=== PATIENT | male | born 2000 | race Caucasian/White ===

== ENCOUNTER 2021-03-07 21:47 | Emergency (ER) | payer BC, SELFPAY ==
[2021-03-07 21:51] VITALS: BP 149/75; PULSE 79; RESP 16; TEMP 37.3; O2SAT 98
--- NOTE | 2021-03-07 21:54 | DI.RAD.S_ITS ---
PROCEDURE: XR CHEST 1V INDICATIONS: chest pain TECHNIQUE: One view of the chest was acquired. COMPARISON: None. FINDINGS: Surgical changes and devices: None. Lungs and pleura: Lungs are clear. No pleural effusions or pneumothorax. Mediastinum: Mediastinal contours appear normal. Heart size is normal. Bones and chest wall: No suspicious bony lesions. Overlying soft tissues appear unremarkable. IMPRESSION: No acute cardiopulmonary abnormality. Dictated by: Clay Gillette M.D. on 03/07/2021 at 22:07 Approved by: Clay Gillette M.D. on 03/07/2021 at 22:07
[2021-03-07 22:27] LABS: Add Manual Diff / Slide Review NO; Basophils Absolute Auto 100 /uL (0-100); Basophils Percent Auto 0.6 % (0-2); Eosinophils Absolute Auto 200 /uL (0-450); Eosinophils Percent Auto 2.1 % (2-4); Hematocrit 43.4 % (41-53); Hemoglobin 14.8 g/dL (13.5-17.5); Lymphocytes Absolute Auto 2300 /uL (1100-4500); Lymphocytes Percent Auto 24.5 % (25-40); Mean Corpuscular HGB Conc 34.1 % (30-36); Mean Corpuscular Hemoglobin 28.7 PG (26-34); Mean Corpuscular Volume 84.3 fL (80-100); Monocytes Absolute Auto 800 /uL (0-900); Monocytes Percent Auto 8.6 % (3-14); Neutrophils Absolute Auto 5900 /uL (1500-7000); Neutrophils Percent Auto 64.2 % (50-75); Platelet Count 283 X10^3/uL (150-400); Red Blood Cell Count 5.14 X10^6/uL (4.5-5.9); Red Cell Distribution Width 12.8 % (11.6-14.8); White Blood Cell Count 9.2 X10^3/uL (4.5-11.0)
[2021-03-07 22:35] LABS: Alanine Aminotransferase 20 IU/L (<50); Albumin 4.8 g/dL (3.5-5.0); Albumin Globulin Ratio 1.7 (1.0-2.8); Alkaline Phosphatase 65 U/L (38-126); Aspartate Aminotransferase 30 IU/L (17-59); BUN Creatinine Ratio 16.3 (6-22); Bilirubin Total 0.7 mg/dL (0.2-1.3); Blood Urea Nitrogen 14 mg/dL (9-20); Calcium 9.5 mg/dL (8.4-10.2); Carbon Dioxide 29 mmol/L (22-32); Chloride 104 mmol/L (98-107); Creatine Kinase 200 U/L (55-170); Estimated Glomerular Filt Rate > 60.0 mL/min (>60); Globulin 2.9 g/dL (1.7-4.1); Glucose 93 mg/dL (70-100); HEMOLYSIS 17 (0-50); Lipase 26 U/L (23-300); Magnesium 2.1 mg/dL (1.6-2.3); Potassium 3.6 mmol/L (3.4-5.1); Sodium 140 mmol/L (137-145); Total Protein 7.7 g/dL (6.3-8.2)
[2021-03-07 22:46] LABS: Troponin I < 0.012 ng/mL (0.01-0.034)
[2021-03-07 22:46] LABS: COVID19 -Nasal RAPID Negative (Negative)
[2021-03-07 22:50] LABS: CKMB % Relative Index 0.4 % (1.5-5.0); Creatine Kinase MB 0.85 ng/mL (<2.37)
[2021-03-07 23:57] VITALS: BP 120/69; PULSE 64; RESP 18; O2SAT 99
--- NOTE | 2021-03-08 00:06 | ED.CHESTPAIN ---
HPI - Chest Pain General Chief Complaint: Chest Pain Stated Complaint: chest pain, short of breath Time Seen by Provider: 03/08/21 00:05 Source: patient Mode of arrival: Ambulatory History of Present Illness HPI narrative: Patient is a healthy 21-year-old male presenting with shortness of breath and chest discomfort ongoing for about 1 month. He says he occasionally gets some chest pain in the center of his chest it takes his breath away. He gets short of breath when he is exercising at times. He is able to go up about 10 flights of stairs without stopping. He occasionally feels it when he lays down at night as well. He denies any fever or chills no palpitations. He denies any hemoptysis no prior history of DVT however multiple family members have factor 5 Leiden. He has not had any recent travel. He denies any cough. He describes pain sometimes a dull ache and sometimes sharp and stabbing. It is nonradiating. Related Data Allergies Allergy/AdvReac Type Severity Reaction Status Date / Time No Known Drug Allergies Allergy Verified 03/07/21 21:54 Review of Systems Review of Systems Narrative: GENERAL: Denies chills, fatigue, malaise, fever, sweats, travel HEENT: Denies sinus pain, ear pain, sore throat, difficulty swallowing, neck pain RESPIRATORY: Denies dyspnea, cough, wheezing, hemoptysis, sputum. CARDIOVASCULAR: see HPI GASTROINTESTINAL: Denies nausea, vomiting, abdominal pain, diarrhea, constipation, melena. : Denies dysuria, frequency, incontinence, hematuria, urinary retention, flank pain. MUSCULOSKELETAL: Denies weakness, joint pain, or bony pain SKIN: No rash, no erythema, no pruritus NEUROLOGIC: Denies weakness, dizziness, headache, numbness, change in speech, confusion PSYCHIATRIC: No concerning psychosocial issues. 12 point review of systems is negative except for those stated above and HPI Exam Initial Vital Signs Initial Vital Signs: Vital Signs Temperature 99.1 F 03/07/21 21:51 Pulse Rate 79 03/07/21 21:51 Respiratory Rate 16 03/07/21 21:51 Blood Pressure 149/75 H 03/07/21 21:51 Pulse Oximetry 98 03/07/21 21:51 GENERAL: Alert well-appearing 21-year-old male in no acute distress. HEENT: Head atraumatic,EOMI, pupils reactive, face symmetric, moist mucous membranes CARDIOVASCULAR: Regular rate and rhythm without murmurs, rubs or gallops. RESPIRATORY: Breath sounds equal bilaterally, no wheezes rales or rhonchi. ABDOMEN: Soft, nontender. Normoactive bowel sounds all 4 quadrants. No guarding or rebound. EXTREMITIES: Normal range of motion, no clubbing or edema. Neurovascularly intact NEUROLOGICAL: Alert and oriented x4.Normal gait and speech. SKIN: Warm, dry, no laceration, no petechiae, no rashes or lesions. Scores PERC Score Age greater than or equal to 50 years: No Heart rate greater than or equal to 100 bpm: No Room Air O2 Sat less than 95%: No Unilateral leg swelling: No Recent trauma or surgery: No Hemoptysis: No Prior PE or DVT: No Hormone Use: No Total PERC Score: 0 Course Orders Ordered: ED Orders 03/07/21 21:54 XR chest 1V Stat EKG-12 Lead Stat 03/07/21 22:05 Complete Blood Count AUTO DIFF Stat Comprehensive Metabolic Panel Stat Lipase Stat Magnesium Stat Troponin & CK Cardiac Panel Stat 03/07/21 22:20 COVID19 -Nasal swab/Pre-Proc Stat 03/08/21 00:14 D Dimer Stat Vital Signs Vital signs: Vital Signs - 8 hr 03/07/21 21:51 03/07/21 23:57 03/08/21 01:08 Temperature 99.1 F Pulse Rate 79 64 68 Respiratory Rate 16 18 20 Blood Pressure 149/75 H 120/69 131/85 Pulse Oximetry 98 99 99 MDM - Chest Pain Lab Data Result diagrams: 03/07/21 22:05 03/07/21 22:05 Labs: Lab Results 03/07/21 03/07/21 03/07/21 Range/Units 22:05 22:05 22:05 WBC 9.2 (4.5-11.0) X10^3/uL RBC 5.14 (4.5-5.9) X10^6/uL Hgb 14.8 (13.5-17.5) g/dL Hct 43.4 (41-53) % MCV 84.3 (80-100) fL MCH 28.7 (26-34) PG MCHC 34.1 (30-36) % RDW 12.8 (11.6-14.8) % Plt Count 283 (150-400) X10^3/uL Neut % (Auto) 64.2 (50-75) % Lymph % (Auto) 24.5 L (25-40) % [place] % (Auto) 8.6 (3-14) % Eos % (Auto) 2.1 (2-4) % Baso % (Auto) 0.6 (0-2) % Neut # (Auto) 5900 (8816-8282) /uL Lymph # (Auto) 2300 (6232-5334) /uL [place] # (Auto) 800 (0-900) /uL Eos # (Auto) 200 (0-450) /uL Baso # (Auto) 100 (0-100) /uL D-Dimer < 200 (<230) ng/mL Sodium 140 (137-145) mmol/L Potassium 3.6 (3.4-5.1) mmol/L Chloride 104 (98-107) mmol/L Carbon Dioxide 29 (22-32) mmol/L BUN 14 (9-20) mg/dL Creatinine 0.86 (0.66-1.25) mg/dL Estimated GFR > 60.0 (>60) mL/min BUN/Creatinine Ratio 16.3 (6-22) Glucose 93 (70-100) mg/dL Calcium 9.5 (8.4-10.2) mg/dL Magnesium 2.1 (1.6-2.3) mg/dL Total Bilirubin 0.7 (0.2-1.3) mg/dL AST 30 (17-59) IU/L ALT 20 (<50) IU/L Alkaline Phosphatase 65 (38-126) U/L Total Creatine Kinase 200 H (55-170) U/L CK-MB (CK-2) 0.85 (<2.37) ng/mL CK-MB (CK-2) Rel Index 0.4 L (1.5-5.0) % Troponin I < 0.012 (0.01-0.034) ng/mL Total Protein 7.7 (6.3-8.2) g/dL Albumin 4.8 (3.5-5.0) g/dL Globulin 2.9 (1.7-4.1) g/dL Albumin/Globulin Ratio 1.7 (1.0-2.8) Lipase 26 (23-300) U/L SARS-CoV-2 (PCR) (Negative) 03/07/21 Range/Units 22:20 WBC (4.5-11.0) X10^3/uL RBC (4.5-5.9) X10^6/uL Hgb (13.5-17.5) g/dL Hct (41-53) % MCV (80-100) fL MCH (26-34) PG MCHC (30-36) % RDW (11.6-14.8) % Plt Count (150-400) X10^3/uL Neut % (Auto) (50-75) % Lymph % (Auto) (25-40) % [place] % (Auto) (3-14) % Eos % (Auto) (2-4) % Baso % (Auto) (0-2) % Neut # (Auto) (6440-8994) /uL Lymph # (Auto) (8220-8897) /uL [place] # (Auto) (0-900) /uL Eos # (Auto) (0-450) /uL Baso # (Auto) (0-100) /uL D-Dimer (<230) ng/mL Sodium (137-145) mmol/L Potassium (3.4-5.1) mmol/L Chloride (98-107) mmol/L Carbon Dioxide (22-32) mmol/L BUN (9-20) mg/dL Creatinine (0.66-1.25) mg/dL Estimated GFR (>60) mL/min BUN/Creatinine Ratio (6-22) Glucose (70-100) mg/dL Calcium (8.4-10.2) mg/dL Magnesium (1.6-2.3) mg/dL Total Bilirubin (0.2-1.3) mg/dL AST (17-59) IU/L ALT (<50) IU/L Alkaline Phosphatase (38-126) U/L Total Creatine Kinase (55-170) U/L CK-MB (CK-2) (<2.37) ng/mL CK-MB (CK-2) Rel Index (1.5-5.0) % Troponin I (0.01-0.034) ng/mL Total Protein (6.3-8.2) g/dL Albumin (3.5-5.0) g/dL Globulin (1.7-4.1) g/dL Albumin/Globulin Ratio (1.0-2.8) Lipase (23-300) U/L SARS-CoV-2 (PCR) Negative (Negative) Imaging Data Chest x-ray: Radiologist's Impression: PROCEDURE:? XR CHEST 1V ? INDICATIONS:? chest pain ? TECHNIQUE:? One view of the chest was acquired.? ? COMPARISON:? None. ? FINDINGS:? ? Surgical changes and devices:? None.? ? Lungs and pleura:? Lungs are clear.? No pleural effusions or pneumothorax.? ? Mediastinum:? Mediastinal contours appear normal.? Heart size is normal.? ? Bones and chest wall:? No suspicious bony lesions.? Overlying soft tissues appear unremarkable.? ? IMPRESSION:? No acute cardiopulmonary abnormality. ? ? ? Dictated by: Clay Gillette M.D. on 03/07/2021 at 22:07? ECG Data Interpretation: Normal sinus rhythm rate 75 MT interval 148 QRS [address] changes no T-wave inversions no Q-waves MDM Narrative Medical decision making narrative: The patient has been having symptoms ongoing for about 1 month. No significant shortness of breath or acute respiratory distress at this time. He does have numerous his family members positive for factor 5. Fortunately his D-dimer is negative he is not hypoxic or tachycardic. This time this is unlikely to be a pulmonary embolism he has a negative PERC score as well. EKG troponin are also all negative. At this time recommend outpatient follow-up primary care provider. Discharge Plan Departure Patient Disposition: Home Clinical Impression: Atypical chest pain Instructions: DI for Atypical Chest Pain Activity Restrictions/Additional Instructions: *You have been diagnosed with atypical chest pain *What to do: At this time I recommend it tested for factor 5 Leiden. Blood work x-ray and EKG are overall reassuring. Please follow-up with her primary care provider in regards to increasing shortness of breath he may need more testing. *Continue to take medications as directed *Follow up with your primary care provider in 2-3 days or call [phone] *Return to ER if you should have increasing chest pain, shortness of breath, fever or any new, worsening or concerning symptoms
[2021-03-08 00:30] LABS: D Dimer < 200 ng/mL (<230)
[2021-03-08 01:08] VITALS: BP 131/85; PULSE 68; RESP 20; O2SAT 99
== END 2021-03-08 01:14 | disposition home or self-care (01) ==
PROVIDERS: Emergency Provider Emergency Medicine
DX: R07.89 Other chest pain (principal); Z20.822 Contact with and (suspected) exposure to COVID-19
CPT/HCPCS: 36415; 71045; 80053; 82550; 82553; 83690; 83735; 84484; 85025; 85379; 87635; 93005; 99283; 99284; C9803

== ENCOUNTER 2022-03-26 10:22 | Emergency (ER) | payer BC, SELFPAY ==
[2022-03-26 11:00] VITALS: BP 144/68; PULSE 72; RESP 18; TEMP 36.7; O2SAT 99; BMI 38.5
[2022-03-26 11:51] LABS: Add Manual Diff / Slide Review NO; Basophils Absolute Auto 100 /uL (0-100); Basophils Percent Auto 0.8 % (0-2); Eosinophils Absolute Auto 0 /uL (0-450); Eosinophils Percent Auto 0.6 % (2-4); Hematocrit 43.6 % (41-53); Hemoglobin 15.1 g/dL (13.5-17.5); Lymphocytes Absolute Auto 1200 /uL (1100-4500); Lymphocytes Percent Auto 19.3 % (25-40); Mean Corpuscular HGB Conc 34.6 % (30-36); Mean Corpuscular Hemoglobin 28.8 PG (26-34); Mean Corpuscular Volume 83.2 fL (80-100); Monocytes Absolute Auto 400 /uL (0-900); Monocytes Percent Auto 6.4 % (3-14); Neutrophils Absolute Auto 4600 /uL (1500-7000); Neutrophils Percent Auto 72.9 % (50-75); Platelet Count 325 X10^3/uL (150-400); Red Blood Cell Count 5.24 X10^6/uL (4.5-5.9); Red Cell Distribution Width 13.2 % (11.6-14.8); White Blood Cell Count 6.3 X10^3/uL (4.5-11.0)
[2022-03-26 11:57] LABS: Alanine Aminotransferase 26 IU/L (<50); Albumin 5.1 g/dL (3.5-5.0); Albumin Globulin Ratio 1.4 (1.0-2.8); Alkaline Phosphatase 76 U/L (38-126); Aspartate Aminotransferase 30 IU/L (17-59); BUN Creatinine Ratio 16.2 (6-22); Bilirubin Total 0.7 mg/dL (0.2-1.3); Blood Urea Nitrogen 12 mg/dL (9-20); Calcium 9.5 mg/dL (8.4-10.2); Carbon Dioxide 30 mmol/L (22-32); Chloride 100 mmol/L (98-107); Estimated Glomerular Filt Rate > 60 mL/min (>60); Globulin 3.7 g/dL (1.7-4.1); Glucose 106 mg/dL (70-100); HEMOLYSIS 32 (0-50); Lipase 24 U/L (23-300); Potassium 3.7 mmol/L (3.4-5.1); Sodium 141 mmol/L (137-145); Total Protein 8.8 g/dL (6.3-8.2)
--- NOTE | 2022-03-26 12:19 | DI.CT.S_ITS ---
PROCEDURE: CT ABDOMEN PELVIS W CON INDICATIONS: abd pain x 3 weeks, started RLQ, now generalized. TECHNIQUE: After the administration of intravenous contrast, axial sections acquired from the lung bases to the pubic symphysis. Coronal and sagittal reformats were performed. For radiation dose reduction, the following was used: automated exposure control, adjustment of mA and/or kV according to patient size. COMPARISON: None. FINDINGS: Image quality: Excellent. Lung bases: Unremarkable. Heart: No significant findings. ABDOMEN: Liver: Unremarkable. Gallbladder: Unremarkable. Biliary ducts: Unremarkable. Pancreas: Unremarkable. Spleen: Unremarkable. Adrenal Glands: Unremarkable. Kidneys and Ureters: Unremarkable. Stomach and Bowel: Stomach, small bowel loops, and colon are unremarkable. Appendix is visualized in right lower quadrant and is normal in size and appearance. Peritoneum: No abnormal intraperitoneal fluid. No free air. Ventral Wall: No hernias. Abdominal Nodes: No retroperitoneal or mesenteric adenopathy by size criteria. Vessels: Aorta and inferior vena cava are normal in size. PELVIS: Pelvic Organs: Unremarkable. Bladder: Unremarkable. Pelvic Nodes: No enlarged lymph nodes. Miscellaneous: No hernias are seen. Bones: No suspicious bony lesions. No acute vertebral body compression fracture. IMPRESSION: 1. Normal appendix. No bowel obstruction or abnormal bowel wall thickening. No free fluid or free air. 2. No renal stones or hydronephrosis. Normal appearing urinary bladder. Dictated by: Christopher Kathleen M.D. on 03/26/2022 at 13:06 Approved by: Christopher Kathleen M.D. on 03/26/2022 at 13:13
--- NOTE | 2022-03-26 13:56 | ED_ITS ---
HPI - Abdominal Pain <Juan F Faye PA-C - Last Filed: 03/26/22 14:08> General Chief Complaint: Abdominal Pain Stated Complaint: abd pain t-14 getting worse Time Seen by Provider: 03/26/22 12:08 Source: patient Mode of arrival: Ambulatory History of Present Illness HPI narrative: 22-year-old male with no reported past medical history presents to the ED with 3 weeks of all over abdominal pain. Patient states that his pain 1st started in the right lower quadrant, however has migrated into the epigastric region, and sometimes all over. Patient states that the pain is an 8/10 when at its worst, which was this morning. In the ED patient endorses a 3/10 pain, sometimes barely discernible. Patient denies fever, chills, chest pain, shortness of breath, vomiting, dysuria, diarrhea, constipation, flank pain, lightheadedness, dizziness, syncope. Denies changes to bowel movements recently. Patient does not appreciate any alleviating or aggravating factors. Patient states that he sometimes perceives more pain when working and doing activities like digging. States that the pain feels better with walking. No prior abdominal surgeries. Related Data Home Medications Medication Instructions Recorded Confirmed No Known Home Medications 03/26/22 03/26/22 Allergies Allergy/AdvReac Type Severity Reaction Status Date / Time No Known Drug Allergies Allergy Verified 03/26/22 11:04 Review of Systems <Juan F Faye PA-C - Last Filed: 03/26/22 14:08> Review of Systems ROS Unobtainable: All systems reviewed & are unremarkable except as noted in HPI and below Constitutional Constitutional: Denies chills, Denies fatigue, Denies fever(s), Denies frequent falls, Denies lethargy and Denies weakness Eyes Eyes: Denies change in vision, Denies eye discharge, Denies irritation and Denies loss of vision ENT Ears, Nose, Mouth, and Throat: Denies change in voice, Denies dizziness, Denies neck pain, Denies sore throat and Denies throat swelling Cardiovascular Cardiovascular: Denies chest pain, Denies irregular heart rhythm, Denies lightheadedness, Denies palpitations, Denies dyspnea, Denies dyspnea on exertion and Denies orthopnea Respiratory Respiratory: Denies cough, Denies dyspnea, Denies dyspnea on exertion and Denies wheezing Gastrointestinal Gastrointestinal: Reports abdominal pain, Denies change in bowel habits, Denies diarrhea, Reports nausea and Denies vomiting Genitourinary Genitourinary: Denies hematuria, Denies flank pain, Denies urinary incontinence and Denies urinary urgency Musculoskeletal Musculoskeletal: Denies back pain, Denies muscle weakness, Denies neck pain, Denies numbness and Denies tingling Integumentary/Breasts Skin/Breast: Denies pruritus, Denies erythema, Denies rash and Denies wounds Neurologic Neurologic: Denies behavioral changes, Denies confusion, Denies dizziness, De nies frequent falls, Denies loss of vision, Denies numbness, Denies tingling and Denies weakness Psychiatric Psychiatric: Denies anxiety, Denies behavioral changes, Denies confusion, Denies depression, Denies homicidal ideation and Denies suicidal ideation Endocrine Endocrine: Denies fatigue, Denies flushing and Denies palpitations Hematologic/Lymphatic Hematologic/Lymphatic: Denies easy bruising Allergic/Immunologic Allergic/Immunologic: Denies urticaria, Denies throat swelling and Denies wheezing Patient History <Juan F Faye PA-C - Last Filed: 03/26/22 14:08> Social History Smoking Status: Never smoker Smoking Status: Never smoker alcohol intake frequency: 0-2 drinks per day Substance Use Type: does not use Exam <Juan F Faye PA-C - Last Filed: 03/26/22 14:08> Narrative Exam Narrative: Const General:?cooperative, healthy appearing and comfortable [facility] Head:?normal to inspection Ears:?hearing grossly normal bilaterally Nose:?external nose normal Face and sinus:?normal facial exam and sinuses nontender Mouth:?oral mucosae normal Throat:?posterior oropharynx normal Eyes General:?appearance normal, both eyes and all related structures Neck Neck:?normal visual inspection and no lymphadenopathy noted Resp Effort & Inspection:?normal respiratory effort Auscultation:?clear to auscultation bilaterally Cardio Rate:?regular rate Rhythm:?regular rhythm GI Abdomen is soft, nondistended. Tender to palpation in the epigastric region. No CVA tenderness. Neuro General:?patient alert, patient awake and patient oriented x3 Initial Vital Signs Initial Vital Signs: Vital Signs Temperature 98.1 F 03/26/22 11:00 Pulse Rate 72 03/26/22 11:00 Respiratory Rate 18 03/26/22 11:00 Blood Pressure 144/68 H 03/26/22 11:00 Pulse Oximetry 99 03/26/22 11:00 Oxygen Delivery Method 03/26/22 11:00 <DO Eric Caballero Last Filed: 03/29/22 07:56> Initial Vital Signs Initial Vital Signs: Vital Signs Temperature 98.1 F 03/26/22 11:00 Pulse Rate 72 03/26/22 11:00 Respiratory Rate 18 03/26/22 11:00 Blood Pressure 144/68 H 03/26/22 11:00 Pulse Oximetry 99 03/26/22 11:00 Oxygen Delivery Method 03/26/22 11:00 Course <VINNY Capone Last Filed: 03/26/22 14:08> Orders Ordered: Discontinued Medications Ondansetron HCl (Ondansetron 4 Mg/2 Ml Inj) 4 mg IV NOW PRN PRN Reason: Nausea And Vomiting Vital Signs Vital signs: Vital Signs - 8 hr 03/26/22 11:00 Temperature 98.1 F Pulse Rate 72 Respiratory Rate 18 Blood Pressure 144/68 H Pulse Oximetry 99 Oxygen Delivery Method Room Air <DO Eric Caballero Last Filed: 03/29/22 07:56> Orders Ordered: Discontinued Medications Ondansetron HCl (Ondansetron 4 Mg/2 Ml Inj) 4 mg IV NOW PRN PRN Reason: Nausea And Vomiting Vital Signs Vital signs: Vital Signs - 8 hr 03/26/22 11:00 Temperature 98.1 F Pulse Rate 72 Respiratory Rate 18 Blood Pressure 144/68 H Pulse Oximetry 99 Oxygen Delivery Method Room Air MDM - Abdominal Pain <VINNY Capone Last Filed: 03/26/22 14:08> Lab Data Result diagrams: 03/26/22 11:30 03/26/22 11:30 Labs: Lab Results 03/26/22 03/26/22 Range/Units 11:30 11:30 WBC 6.3 (4.5-11.0) X10^3/uL RBC 5.24 (4.5-5.9) X10^6/uL Hgb 15.1 (13.5-17.5) g/dL Hct 43.6 (41-53) % MCV 83.2 (80-100) fL MCH 28.8 (26-34) PG MCHC 34.6 (30-36) % RDW 13.2 (11.6-14.8) % Plt Count 325 (150-400) X10^3/uL Neut % (Auto) 72.9 (50-75) % Lymph % (Auto) 19.3 L (25-40) % [place] % (Auto) 6.4 (3-14) % Eos % (Auto) 0.6 L (2-4) % Baso % (Auto) 0.8 (0-2) % Neut # (Auto) 4600 (3357-3794) /uL Lymph # (Auto) 1200 (3300-7021) /uL [place] # (Auto) 400 (0-900) /uL Eos # (Auto) 0 (0-450) /uL Baso # (Auto) 100 (0-100) /uL Sodium 141 (137-145) mmol/L Potassium 3.7 (3.4-5.1) mmol/L Chloride 100 (98-107) mmol/L Carbon Dioxide 30 (22-32) mmol/L BUN 12 (9-20) mg/dL Creatinine 0.74 (0.66-1.25) mg/dL Estimated GFR > 60 (>60) mL/min BUN/Creatinine Ratio 16.2 (6-22) Glucose 106 H (70-100) mg/dL Calcium 9.5 (8.4-10.2) mg/dL Total Bilirubin 0.7 (0.2-1.3) mg/dL AST 30 (17-59) IU/L ALT 26 (<50) IU/L Alkaline Phosphatase 76 (38-126) U/L Total Protein 8.8 H (6.3-8.2) g/dL Albumin 5.1 H (3.5-5.0) g/dL Globulin 3.7 (1.7-4.1) g/dL Albumin/Globulin Ratio 1.4 (1.0-2.8) Lipase 24 (23-300) U/L Point of care testing: Urine Dip Bedside Urine Glucose Negative Bedside Urine Bilirubin - Negative Bedside Urine Ketone - Negative Urine Specific [place] 1.005 Bedside Urine Occult Blood - Negative Bedside Urine pH 8.0 Bedside Urine Protein - Negative Bedside Urine Urobilinogen - Negative Bedside Urine Nitrite - Negative Bedside Urine Leukocytes - Negative Esterase MDM Narrative Medical decision making narrative: 22-year-old male with no reported past medical history presents to the ED with 3 weeks of all over abdominal pain. Concern for appendicitis versus bowel obstruction versus constipation versus gastritis versus GERD versus PUD versus H pylori infection versus pancreatitis versus UTI versus nephrolithiasis versus other intra-abdominal pathology vs other. Obtained labs, UA, CT abdomen pelvis all without acute findings. Patient's symptoms likely due to gastritis versus GERD versus H pylori versus constipation. Recommend trialing Pepcid AC for 2 weeks, increased fiber intake, increased water intake, MiraLax. Recommend f ollow-up with PCP for testing for H pylori and further evaluation. ED return precautions were discussed with patient. Patient verbalized understanding. Complicating co-morbidities:??None ? Corroborating data: Labs, UA, Data collected from:? Patient ? Medical records reviewed:??Yes ? Differential considered:??As above ? Exam documented above, pertinent findings include:? ? Lab Test results independently reviewed as above. Pertinent findings: ? Independently reviewed EKG as above: n/a ? Imaging studies independently reviewed: Reviewed by author and radiology ? Consultations: Not applicable ? Treatments: Zofran ? Re-evaluations: Patient stable ? Discussion: As above ? Diagnosis: As above ? Disposition: see below, along with detailed discharge instructions that have been reviewed with patient as well as indications for ED re-evaluation and additional outpatient follow up <Brii Kelley, DO - Last Filed: 03/29/22 07:56> Lab Data Labs: Lab Results 03/26/22 03/26/22 Range/Units 11:30 11:30 WBC 6.3 (4.5-11.0) X10^3/uL RBC 5.24 (4.5-5.9) X10^6/uL Hgb 15.1 (13.5-17.5) g/dL Hct 43.6 (41-53) % MCV 83.2 (80-100) fL MCH 28.8 (26-34) PG MCHC 34.6 (30-36) % RDW 13.2 (11.6-14.8) % Plt Count 325 (150-400) X10^3/uL Neut % (Auto) 72.9 (50-75) % Lymph % (Auto) 19.3 L (25-40) % [place] % (Auto) 6.4 (3-14) % Eos % (Auto) 0.6 L (2-4) % Baso % (Auto) 0.8 (0-2) % Neut # (Auto) 4600 (3732-4897) /uL Lymph # (Auto) 1200 (8720-3012) /uL [place] # (Auto) 400 (0-900) /uL Eos # (Auto) 0 (0-450) /uL Baso # (Auto) 100 (0-100) /uL Sodium 141 (137-145) mmol/L Potassium 3.7 (3.4-5.1) mmol/L Chloride 100 (98-107) mmol/L Carbon Dioxide 30 (22-32) mmol/L BUN 12 (9-20) mg/dL Creatinine 0.74 (0.66-1.25) mg/dL Estimated GFR > 60 (>60) mL/min BUN/Creatinine Ratio 16.2 (6-22) Glucose 106 H (70-100) mg/dL Calcium 9.5 (8.4-10.2) mg/dL Total Bilirubin 0.7 (0.2-1.3) mg/dL AST 30 (17-59) IU/L ALT 26 (<50) IU/L Alkaline Phosphatase 76 (38-126) U/L Total Protein 8.8 H (6.3-8.2) g/dL Albumin 5.1 H (3.5-5.0) g/dL Globulin 3.7 (1.7-4.1) g/dL Albumin/Globulin Ratio 1.4 (1.0-2.8) Lipase 24 (23-300) U/L Point of care testing: Urine Dip Bedside Urine Glucose Negative Bedside Urine Bilirubin - Negative Bedside Urine Ketone - Negative Urine Specific [place] 1.005 Bedside Urine Occult Blood - Negative Bedside Urine pH 8.0 Bedside Urine Protein - Negative Bedside Urine Urobilinogen - Negative Bedside Urine Nitrite - Negative Bedside Urine Leukocytes - Negative Esterase Discharge Plan Departure Patient Disposition: Home Clinical Impression: Abdominal pain Instructions: DI for Abdominal Pain-Adult Activity Restrictions/Additional Instructions: You were evaluated in the ED today for abdominal pain. Your labs, urine, CT were normal. Your symptoms could be due to acid reflux and/or constipation. You may trial Pepcid AC twice a day for 2 weeks for the acid reflux. Please increase your water intake and fiber intake for constipation. You may also take MiraLax for constipation. Please follow-up with your PCP to be tested for H pylori and further workup. Return to the ED if your symptoms markedly worsen, you are uncontrollably vomiting, you experience chest pain, shortness of breath. Prescriptions: No Action No Known Home Medications Referrals: Miscellaneous,Doctor, MD [Primary Care Provider] - Stand Alone Forms: Patient Portal/API <Brii Kelley DO - Last Filed: 03/29/22 07:56> Cosign ED Attending Marichuy Attestation: I was immediately available in the department for consultation. Documentation has been reviewed. I agree with assessment and plan.
== END 2022-03-26 14:00 | disposition home or self-care (01) ==
PROVIDERS: Emergency Medicine; Emergency Provider Student in an Organized Health Care Education/Training Program
DX: R10.31 Right lower quadrant pain (principal)
CPT/HCPCS: 36415; 74177; 80053; 81003; 83690; 85025; 99283; 99284; Q9967